=== PATIENT | male | born 1965 | race Caucasian/White ===

== ENCOUNTER 2017-12-30 20:04 | Emergency (ER) | payer OTHER ==
--- NOTE | 2017-12-30 20:53 | EDM.PDOC ---
ED HPI GENERAL MEDICAL PROBLEM - General Chief Complaint: Back Pain or Injury Stated Complaint: BACK PAIN Time Seen by Provider: 12/30/17 20:32 Source of Information: Reports: Patient, Old Records, RN Notes Reviewed History Limitations: Reports: No Limitations - History of Present Illness INITIAL COMMENTS - FREE TEXT/NARRATIVE: Here with his Chief complaint Back pain and muscle spasms History of present illness 52-year-old male with back pain for many years, relating to an [employer] injury some 20 years ago. Most the time he manages quite well, he takes etodolac twice daily trazodone at night and occasional lidocaine patches. MRI of the past showed bulging disks and degenerative disc disease L4-L5 and L5- S1. No surgery Twisting out of the chair yesterday he felt a click in his low back. He was able to do some lifting afterwards but then he started experiencing increased pain in low back spasms in the muscles in the left lower back and pain radiating down the left leg. In the past his pain is always been on the right side of his back. Not able to do very much work, he's been confined because when he gets into spasm he can wind up collapsing to the floor. He's able to move his legs without problem, no weakness and no incontinence and no fever. He owns an automobile business, self-employed low back Pain Score (Numeric/FACES): 9 - Related Data Allergies Allergy/AdvReac Type Severity Reaction Status Date / Time No Known Allergies Allergy Verified 12/30/17 20:16 Home Meds: Home Meds Acetaminophen/oxyCODONE [Percocet 325-5 MG] 1 - 2 each PO Q4H PRN #10 tab [Rx] Cyclobenzaprine HCl 10 mg PO TID PRN #15 tablet 12/30/17 [Rx] Etodolac 400 mg PO BID 12/30/17 [History] traMADol [Ultram] 50 mg PO Q4H PRN 12/30/17 [History] traZODone 100 mg PO BEDTIME 12/30/17 [History] Past Medical History Musculoskeletal History: Reports: Back Pain, Chronic Other Musculoskeletal History: DDD L34 and l45 herniated disc. - Infectious Disease History Infectious Disease History: Reports: Chicken Pox - Past Surgical History HEENT Surgical History: Reports: Tonsillectomy GI Surgical History: Reports: Colonoscopy, Hernia, Inguinal, Other (See Below) Other GI Surgeries/Procedures: polyp removed Social & Family History - Tobacco Use Smoking Status *Q: Current Every Day Smoker Years of Tobacco use: 10 Packs/Tins Daily: 0 Used Tobacco, but Quit: No Second Hand Smoke Exposure: No - Caffeine Use Caffeine Use: Reports: Coffee, Tea - Alcohol Use Days Per Week of Alcohol Use: 7 Number of Drinks Per Day: 2 Total Drinks Per Week: 14 - Recreational Drug Use Recreational Drug Use: Yes Recreational Drug Type: Reports: Marijuana/Hashish Recreational Drug Use Frequency: Socially ED ROS GENERAL - Review of Systems Review Of Systems: See Below Constitutional: Reports: Other (Decreased activity). Denies: Fever, Malaise, Decreased Appetite HEENT: Reports: No Symptoms Respiratory: Reports: No Symptoms Cardiovascular: Reports: No Symptoms GI/Abdominal: Reports: No Symptoms : Reports: No Symptoms Musculoskeletal: Reports: Back Pain, Leg Pain (Radiation to left leg) Skin: Reports: No Symptoms Neurological: Reports: Tingling (Left foot), Difficulty Walking (Due to back pain). Denies: Trouble Speaking Hematologic/Lymphatic: Reports: No Symptoms ED EXAM,LOWER BACK PAIN/INJURY - Physical Exam Exam: See Below Exam Limited By: No Limitations General Appearance: Alert, Moderate Distress, Other (Communicates well, vital signs normal, insignificant discomfort with movement) Eye Exam: Bilateral Eye: Normal Inspection Ears: Normal External Exam, Hearing Grossly Normal Throat/Mouth: Normal Inspection Head: Atraumatic, Normocephalic Neck: Normal Inspection Respiratory/Chest: No Respiratory Distress, No Accessory Muscle Use Cardiovascular: Normal Peripheral Pulses, Regular Rate, Rhythm GI/Abdominal: No Distention Back Exam: CVA Tenderness (L), Decreased Range of Motion, Muscle Spasm, Paraspinal Tenderness. No: Vertebral Tenderness Extremities: Normal Inspection, Other (Straight leg raising limited to 60 right 45 left) Neurological: Alert, Normal Reflexes, No Motor/Sensory Deficits, Difficulty Walking, Other (Normal strength) Psychiatric: Normal Mood Skin Exam: Warm, Dry, Intact, Normal Color, No Rash Lymphatic: No Adenopathy Course - Vital Signs Last Recorded V/S: Last Vital Signs Temp 36.4 C 12/30/17 20:26 Pulse 68 12/30/17 20:26 Resp 16 12/30/17 20:26 BP 127/88 12/30/17 20:26 Pulse Ox 95 12/30/17 20:26 - Re-Assessments/Exams Free Text/Narrative Re-Assessment/Exam: 12/30/17 20:51 52-year-old male with acute flareup of low back pain after twisting of the chair yesterday. History of chronic back pain with previous MRI, no surgery Pain is now radiating down the left leg with tingling in left toes. This is a new symptoms Strength is intact No red flags indicating need for immediate imaging. Pain medication and muscle relaxers prescribed, see below Follow-up primary care Departure - Departure Time of Disposition: 20:52 Disposition: Home, Self-Care 01 Condition: Good Clinical Impression: Acute exacerbation of chronic low back pain, Left sided sciatica - Discharge Information Prescriptions: Acetaminophen/oxyCODONE [Percocet 325-5 MG] 1 - 2 each PO Q4H PRN #10 tab PRN Reason: moderate to severe pain Cyclobenzaprine HCl 10 mg PO TID PRN #15 tablet PRN Reason: Muscle Spasm Instructions: Sciatica, What You Need to Know About Chronic Back Pain Referrals: Alex King MD [Primary Care Provider] - Forms: ED Department Discharge Additional Instructions: Stay as active as possible Make an appointment to get rechecked by your doctor in the next week Get checked sooner if you have loss of bladder or bowel control, fever, vomiting , inability to move your legs or inability to walk.
== END 2017-12-30 21:15 | disposition home or self-care (01) ==
LOC: JP.ED 20:04
DX: M54.42 Lumbago with sciatica, left side (principal); G89.29 Other chronic pain; F17.210 Nicotine dependence, cigarettes, uncomplicated; Z79.899 Other long term (current) drug therapy
CPT/HCPCS: 99283

== ENCOUNTER 2024-06-18 12:10 | Emergency (ER) | payer OTHER ==
[2024-06-18] MEDS: Dexamethasone 4 MG/ML SDV IVPUSH ONE (14:31)
[2024-06-18] MEDS: Ketorolac 30 MG/ML SDV IVPUSH ONE (14:33)
== END 2024-06-18 15:58 | disposition home or self-care (01) ==
LOC: JP.ED 12:10
DX: M54.42 Lumbago with sciatica, left side (principal); M54.16 Radiculopathy, lumbar region; Z79.82 Long term (current) use of aspirin; Z79.899 Other long term (current) drug therapy
CPT/HCPCS: 96374; 96375; 96376; 99283; J1100; J1885; J3360